=== PATIENT | male | born 1985 ===

== ENCOUNTER 2019-10-17 18:41 | Emergency (ER) | payer MEDICAID, SELFPAY ==
[2019-10-17 18:46] VITALS: BP 108/64; PULSE 75; RESP 16; O2SAT 96; BMI 22.6
--- NOTE | 2019-10-17 18:59 | W.ED.SKABFB ---
HPI - Skin/Abscess/Foreign Bdy General: Chief complaint: Skin/Abscess/Foreign Body Stated complaint: needs wart removed Time Seen by Provider: 10/17/19 18:53 History of Present Illness: HPI narrative: Patient presents here desiring removal of wart that is been on his left index finger times years. Has not tried any [id number] medication. Has not pursued the services of a primary care doctor. Onset (ago): year(s) Location: L hand Review of Systems Narrative: Patient presents with no problems except that he has a common wart on his left index finger at the base. Other systems are negative. [facility] ED PFSH: Statuses (acute, chronic, etc) shown below reflect problem list status as previously entered and may not be historically accurate Social History Smoking and tobacco status: current every day smoker Physical Exam Const: OTHER: Left index finger has a large common wart on the dorsal surface at the base. Psych: COMMON NORMALS: mental status grossly normal Course Vital Signs: Vital signs: Vital Signs Pulse Rate 75 10/17/19 18:46 Respiratory Rate 16 10/17/19 18:46 Blood Pressure 108/64 10/17/19 18:46 Pulse Oximetry 96 10/17/19 18:46 Discharge Plan Discharge Patient Disposition: Home, Self-Care Clinical Impression: Wart Qualifiers: Viral wart type: other viral wart Qualified Code(s): B07.8 - Other viral warts Condition: Stable Prescriptions: No Action No Known Home Medications RF: 0 Discharge Orders: Discharge Order (Routine); Ordered 10/17/19 Ordered By: Armand Chin Discharge Diet: Usual diet Discharge Activity: Resume usual activity Patient Instructions: Common Wart (ED) Activity Restrictions/Additional Instructions: Follow-up with primary care clinic as directed can use Compound W are 1 of the freeze [id number] wart therapy is available. Coding Level of Care Code ED [employer] Administrator for Karley Mosley
== END 2019-10-17 19:00 | disposition home or self-care (01) ==
PROVIDERS: Emergency Provider Nurse Practitioner Family
DX: B07.9 Viral wart, unspecified (principal); F17.210 Nicotine dependence, cigarettes, uncomplicated
CPT/HCPCS: 99281

== ENCOUNTER 2019-11-10 10:01 | Emergency (ER) | payer MEDICAID, SELFPAY ==
[2019-11-10 10:16] VITALS: RESP 18; BMI 22.6
== END 2019-11-10 14:00 | disposition left against medical advice (07) ==
LOC: ER 11:41
PROVIDERS: Emergency Provider Family Medicine
DX: K04.7 Periapical abscess without sinus (principal); F17.200 Nicotine dependence, unspecified, uncomplicated; Z53.21 Procedure and treatment not carried out due to patient leaving prior to being seen by health care provider
CPT/HCPCS: 99281